=== PATIENT | female | born 1980 | race Caucasian/White ===

== ENCOUNTER → 2020-07-07 | Day surgery (SDC) | payer OTHER ==
--- NOTE | 2020-07-07 13:57 | MMO ---
FILMS COMPARED: The present examination has been compared to prior imaging studies performed at [facility] on 05/04/2020 and 06/28/2020. MAMMOGRAM FINDINGS: The breast is heterogeneously dense, which could obscure a lesion on mammography. Biopsy marker is seen posterior outer breast. IMPRESSION: FINDING IN THE RIGHT BREAST IS HIGHLY SUGGESTIVE OF MALIGNANCY. POST BIOPSY. PATHOLOGY PENDING. ACR BI-RADS Category 5 - Highly suggestive of malignancy - appropriate action should be taken Reported by: LONDON RUFFIN MD Electonically Signed: [id number]
--- NOTE | 2020-07-07 14:20 | ULT ---
PROCEDURE: 1. Ultrasound guided core biopsy mass left breast. 2. Ultrasound guided biopsy marker placement at biopsy site. 3. Post biopsy mammogram. INDICATIONS: Patient referred from her primary care doctor in [place], [place]. Outside images from [facility] on reviewed including mammogram and ultrasound exam. Mammograms showed suspicious microcalcifications in the upper outer right breast. Ultrasound demonstrate a hypoechoic mass which is labeled at 10 o'c lock on the outside study. FINDINGS: 1. Preoperative ultrasound of the right breast does demonstrate a hypoechoic spiculated mass at 9 to 10 o'clock. This corresponds to the mass seen on the outside ultrasound exam. This mass is biopsy using ultrasound guided core biopsy with a 14 gauge bard instrument. Five core sp ecimens were obtained through the mass. Prefire and post fire images with each specimen demonstrates biopsy through the mid portion of the mass. Specimens were placed in formalin. 2. Biopsy marker was placed at biopsy site with ultrasound guidance. 3. Postprocedure mammogram confirms biopsy marker in the posterior upper outer right breast correspon ding to the location of the ultrasound mass. Biopsy report will be relayed to patient. Patient will follow-up with her primary care doctor in [facility] and seek further treatment in [place] as warranted from the biopsy report. PROCEDURE NOTE: The right breast was prepped and draped in a sterile manner. Local anesthesia was administered in the outer right breast at site of selected puncture. Local anesthesia was administered under ultrasound guidance. There is a tiny skin luis made with scalpel. A 14 gauge Bard instrument with guide needle i n place was introduced under ultrasound guidance. The instrument was introduced from the inferior out er right breast approaching the 10 o'clock lesion. The biopsy needle was advanced to the leading edge of the mass. A prefire image was obtained. A post fire image confirmed biopsy to the mid portion of the mass. This was repeated x5 with five 14 gauge core specimens obtained and placed in formalin. Biopsy marker was then placed at biopsy site with ultrasound guidance. The patient tolerated the procedure well and was sent for postprocedure mammogram. Postprocedure mammogram confirmed biopsy marker in the posterior aspect of the upper outer right vic st. POS: OFF
== END ==
LOC: BICULT 12:50
PROVIDERS: ATTEND Obstetrics & Gynecology
PROC: 0H9U3ZX Drainage of Left Breast, Percutaneous Approach, Diagnostic (ICD-10-PCS; principal; 2020-07-07)
DX: C50.411 Malignant neoplasm of upper-outer quadrant of right female breast (principal); Z17.0 Estrogen receptor positive status [ER+]
CPT/HCPCS: 19083; 88305; 88341; 88342

== ENCOUNTER 2020-07-20 13:02 | Outpatient (CLI) | payer OTHER ==
--- NOTE | 2020-07-24 10:19 | MRI ---
MRI BREAST W W/O CONT BILAT History: Abnormal right breast mass and breast calcifications Comparison: Ultrasonographic right breast mass biopsy July 07, 2020. Mammogram right breast Octobe r 2019. Screening mammogram of both breasts April 2020. Findings: Multiplanar multisequence MRI of the breasts was performed prior to and after the intraveno us ministration of contrast. Exam was reviewed on an independent 3-D workstation. The breasts are heterogeneously dense. Mild background parenchymal enhancement. Corresponding to the ultrasonographic findings is a 1.4 cm mass upper outer quadrant right breast. Th is has type III kinetics. Adjacent to this are smaller masses; the first is medial to the primary mass approximately 7 mm measuring up to 6 mm in size. This also has type III kinetics. Anterior to th e primary mass, approximately 1.3 cm, is another 6 mm focus of abnormal hyperenhancement. This is all within the same segment of breast. Crossing the right upper outer and right lower outer quadrants is non-masslike enhancement. This abno rmal area of enhancement corresponds to abnormal calcifications seen on recent mammography. In the left breast, there is a small enhancing focus measuring 3 mm, 1.5 cm from the nipple, adjacent to a cyst. This cyst measures up to 1.4 cm in size. There is also lower outer and upper outer cysts of the left breast. Complex cyst upper outer left breast posterior depth does not have any significant internal enhanceme nt. Impression: BI-RADS Category 6: Known malignancy. This is the 1.3 cm mass posterior depth upper outer right breas t. High suspicion for multifocal disease with adjacent small satellite masses along with adjacent multicentric upper outer and lower outer quadrant non-masslike enhancement suggesting DCIS. 2. Small enhancing focus of the left breast measuring 3 mm 1.5 cm from the nipple is too small to reny racterize and not well seen on prior ultrasound or mammogram. Follow-up breast MRI in 6 months recommended. Transcribed Date/Time: 07/24/2020 11:55 AM
== END 2020-07-20 13:03 | disposition home or self-care (01) ==
LOC: BICMRI 13:02
PROVIDERS: ATTEND Specialist
DX: C50.911 Malignant neoplasm of unspecified site of right female breast (principal); N63.11 Unspecified lump in the right breast, upper outer quadrant
CPT/HCPCS: A9577; C8908

== ENCOUNTER → 2020-07-21 | Day surgery (SDC) | payer OTHER ==
--- NOTE | 2020-07-21 08:56 | MMO ---
Stereotactic guided biopsy right breast microcalcifications. Surgical specimen mammography right breast Right diagnostic mammogram post biopsy HISTORY: Breast cancer. Suspicious microcalcifications. Evaluate for DCIS. FINDINGS: After explaining the procedure and answering all questions, the large area of microcalcific ations deep within the lateral aspect of the right breast was visualized. Sterile technique, buffered local anesthesia, stereotactic guidance, and a lateral approach were used to carefully advance a 10-gauge vacuum-assisted needle into the microcalcification cluster. Position was confirmed with stereotactic imaging. A total of 12 10-gauge vacuum-assisted specimens were obtained without difficulty. Mammographic evaluation surgical specimen shows extensive microcalcifications throughout the tissue. Localization clip was placed in the biopsy bed under stereotactic control. Needle was removed and hem ostasis obtained using direct pressure. Patient tolerated the procedure well and was eventually dismissed in good condition. Postprocedure diagnostic mammogram images show removal of a portion of the microcalcification cluster deep within the lateral aspect of the right breast. Pocket of gas and localization clip are now evident at the biopsy bed. IMPRESSION : Technically successful stereotactic guided biopsy right breast microcalcifications. Pathology is pend ing.
== END ==
LOC: MAMMO 07:35
PROVIDERS: ATTEND Specialist
PROC: 0H9 Skin and Breast, Drainage (ICD-10-PCS; principal; 2020-07-21)
DX: C50.911 Malignant neoplasm of unspecified site of right female breast (principal)
CPT/HCPCS: 19081; 76098; 88305; 88341; 88342

== ENCOUNTER 2020-08-03 06:52 | Outpatient (CLI) | payer OTHER ==
[2020-08-03 14:44] LABS: BHCG - Serum Negative (NEGATIVE); Pregs Control Background? CLEAR/WHITE (CLR/WHITE); Pregs Control Bar Appear? YES (CONTROL BAR)
[2020-08-03 14:46] LABS: Anion Gap 11 mmol/L (10-20); BUN (Urea Nitrogen) 14 mg/dL (7.0-18.7); Calc. Creatinine Clearance 0 mL/min (70-130); Calcium 9.2 mg/dL (7.8-10.44); Carbon Dioxide 26 mmol/L (22-29); Chloride 105 mmol/L (98-107); Estimated GFR-MDRD 60; Glucose 85 mg/dL (70-105); Potassium 4.3 mmol/L (3.5-5.1); Sodium 138 mmol/L (136-145)
[2020-08-03 14:47] LABS: #Eosinphils 0.1 10x3/uL (0.0-0.5); #Monocytes 0.8 10x3/uL (0.0-1.1); #Neutrophils 4.5 10x3/uL (1.5-8.4); %Basophils 0.4 % (0.0-2.0); %Eosinophils 0.9 % (0.0-6.0); %Lymphocytes 33.5 % (18.0-47.0); %Monocytes 9.5 % (0.0-10.0); %Neutrophils 55.5 % (40.0-75.0); Hemoglobin 13.4 g/dL (12.0-16.0); Mean Corpuscular HGB CONC 33.1 G/DL (32.0-36.0); Mean Corpuscular Hemoglobin 30.5 PG (27.0-33.0); Mean Corpuscular Volume 92.3 fl (80.0-100.0); Mean Platelet Volume 10.6 fl (7.4-10.4); Platelet Count 280 10x3/uL (130-400); RBC Distribution Width 11.7 % (11.5-14.5); Red Blood Cell (RBC) Count 4.39 10x6/uL (3.90-5.20)
[2020-08-04 04:01] LABS: SARS-CoV-2 MS2 Positive; SARS-CoV-2 N Gene Negative; SARS-CoV-2 S Gene Negative; SARS-CoV-2 by NAA Not Detected (NotDetected); SARS-CoV-2 orf1ab Negative
== END 2020-08-03 06:53 | disposition home or self-care (01) ==
LOC: LABBT 06:52
PROVIDERS: ATTEND Specialist
DX: Z01.812 Encounter for preprocedural laboratory examination (principal); C50.911 Malignant neoplasm of unspecified site of right female breast; Z20.828 Contact with and (suspected) exposure to other viral communicable diseases
CPT/HCPCS: 80048; 84703; 85025; 87635; U0003

== ENCOUNTER 2020-08-08 07:32 | Day surgery (SDC) | payer OTHER ==
[2020-08-07 11:50] VITALS: BMI 23.3
--- NOTE | 2020-08-08 08:44 | NM ---
PROCEDURE: Lymphoscintigraphy of the right breast HISTORY: Upper outer right breast cancer PRIZE JACKER: Crystal AGENT: 399 uCi of technetium 99 M filtered sulfur colloid TECHNIQUE: The breast was prepped with alcohol in the periareolar region. The radiopharmaceutical was injected into 4 spots surrounding the nipple at the 12:00, 3:00, 6:00, and 9:00 positions. Massage was performed of the breast helping the radiopharmaceutical enter the lymphatics. Images obta ined showed uptake of the radiopharmaceutical within an axillary lymph node. IMPRESSION: Right axillary sentinel lymph node
[2020-08-08] MEDS ORDERED: PROPOFOL 200 MG/20 ML VIAL ONE (09:27)
[2020-08-08] MEDS ORDERED: Ondansetron PF 4 MG/2 ML Vial ONE (09:27)
[2020-08-08] MEDS ORDERED: PHENYLEPHRINE-NS 100 MCG/ML 10 ML SYRINGE ONE (09:27)
[2020-08-08] MEDS ORDERED: Dexamethasone 20 MG/5 ML VIAL ONE (09:27)
[2020-08-08] MEDS ORDERED: Midazolam HCl 2 mg/2 ml Vial ONE ×2 (10:46→12:31)
[2020-08-08] MEDS ORDERED: Ketorolac Tromethamine 30 MG/ML VIAL ONE (10:46)
[2020-08-08] MEDS ORDERED: Acetaminophen 500 MG TAB ONE (10:46)
[2020-08-08] MEDS ORDERED: Bupivacaine 0.25% HCL 30 ML VIAL ONE ×2 (12:15→14:03)
[2020-08-08] MEDS ORDERED: Lidocaine 1% w/Epinephrine 1:100K 20 ML VIAL ONE ×2 (12:15→14:03)
[2020-08-08] MEDS ORDERED: Lidocaine 1% (PF) 30 ML VIAL ONE (12:15)
[2020-08-08] MEDS ORDERED: Isosulfan Blue 50 MG/5 ML VIAL ONE (12:15)
[2020-08-08] MEDS ORDERED: Fentanyl 100 MCG/2 ML VIAL ONE ×2 (12:31→13:46)
[2020-08-08] MEDS ORDERED: HYDROmorphone 2 MG/ML VIAL SLOW IVP PRN (16:48)
[2020-08-08] MEDS ORDERED: Meperidine HCl/PF 25 MG/ML VIAL SLOW IVP PRN (16:48)
[2020-08-08] MEDS ORDERED: Ondansetron HCl/PF 4 MG/2 ML Vial IVP PRN (16:48)
[2020-08-08] MEDS ORDERED: Promethazine HCl 25 MG/ML VIAL SLOW IVP PRN (16:48)
--- NOTE | 2020-08-08 17:14 | RAD ---
RADIOGRAPH CHEST 1 VIEW: DATE: 08/08/2020 HISTORY: 40-year-old female status post MediPort placement COMPARISON: None FINDINGS: There are no airspace densities, pulmonary edema, pneumothorax, or cardiomegaly. The lateral costophr enic angles are excluded from the [id number]. There is a left subclavian MediPort with distal tip overlying SVC. IMPRESSION: 1) Left-sided implantable vascular access port. No pneumothorax. 2) No acute cardiopulmonary findings.
--- NOTE | 2020-08-09 13:55 | OP ---
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 OPERATION PERFORMED: Bilateral nipple-sparing mastectomy with right axillary sentinel lymph node biopsy and left subclavian low-profile power compatible MediPort placement. ANESTHESIA: General endotracheal. INDICATIONS: The patient is a 40-year-old white female. She was recently diagnosed with invasive ductal carcinoma of the upper right breast. She has further areas of ductal carcinoma in situ, remote from the malignancy that makes any operation other than a mastectomy unfeasible. In light of this, she has elected to proceed with a bilateral mastectomy. This will be performed in nipple sparing fashion to allow for later reconstruction. Her cancer is HER-2/bertha positive, and her oncologist has requested MediPort placement for chemotherapy administration. DESCRIPTION OF OPERATION: Informed consent was obtained. Lymphoscintigraphy was performed of the right breast revealing axillary lymph nodes. She was taken to the operating room, where general endotracheal anesthesia was obtained with patient in supine position. 3 mL of Lymphazurin was infiltrated in the periareolar subdermal tissue and massaged for 5 minutes. Bilateral breasts and axillae were prepped with ChloraPrep and draped in sterile fashion. Attention was turned first to the MediPort placement. A low-profile power compatible port was placed in the standard fashion, accessing the left subclavian vein uneventfully and utilizing fluoroscopy. The port was secured to the pectoral fascia with 2 interrupted sutures of 3-0 Prolene. The port aspirated blood freely. It was flushed with heparinized saline and the wound was closed in layers with 3-0 and 4-0 Monocryl. Attention was then turned to the right axilla. A transverse axillary incision was created after local anesthetic was infiltrated. Dissection was carried through skin and subcutaneous tissue. Neoprobe was utilized to identify areas of maximum radio intensity. I was able to identify 3 separate sentinel lymph nodes utilizing both the blue dye and the radioactive tracer. Each of these three lymph nodes was dissected circumferentially and all investing lymphatics were divided between clamps and 3-0 silk ties. Intraoperative assessment showed that all three of these were negative. The wound was closed in layers with 3-0 and 4-0 Monocryl. Attention was then turned to the left breast. An incision was created in the left inframammary crease. Dissection was carried down to the chest wall and the breast was elevated off the underlying muscular fascia using careful dissection utilizing the PlasmaBlade. An adipose dermal flap was then elevated off the underlying breast tissue, taking care to maintain appropriate cutaneous viability while removing all of the breast tissue. The dissection was carried up to the extent of the breast superiorly and laterally. The specimen was removed intact and oriented with suture and submitted to Pathology. The wound was irrigated. Meticulous hemostasis was obtained with electrocautery. A #19 round fluted drain was placed within the wound and brought out laterally and inferiorly and secured with 3-0 nylon suture. The incision was then closed in layers with a 3-0 and 4-0 Monocryl suture. Attention was finally turned to the right breast. A mirror-image operation was performed on the right breast as had been performed on the left. At no point was I able to feel or see the malignancy within the breast. There was an area of indurated tissue from her recent biopsy in the upper outer right breast and a thinner skin flap was elevated in that particular area in case there was some remnant of malignancy or DCIS at that location. Otherwise, the operation was identical to that on the left. The wound was again irrigated, drain was placed, and the wound was closed in a similar fashion. Dermabond was placed over each of the four incisions. A fluffed gauze dressing was placed across the chest wall and secured in place with a SilversteinWrap. There were no complications. Blood loss was minimal. The patient tolerated the procedure well and was taken to recovery room in stable condition. Job ID: [id number]
== END 2020-08-08 19:30 | disposition home or self-care (01) ==
LOC: SDC 07:32
PROVIDERS: ATTEND Specialist
PROC: 07B50ZX Excision of Right Axillary Lymphatic, Open Approach, Diagnostic (ICD-10-PCS; principal; 2020-08-08)
PROC: 0HTV0ZZ Resection of Bilateral Breast, Open Approach (ICD-10-PCS; principal; 2020-08-08)
PROC: 02HV33Z Insertion of Infusion Device into Superior Vena Cava, Percutaneous Approach (ICD-10-PCS; principal; 2020-08-08)
DX: C50.411 Malignant neoplasm of upper-outer quadrant of right female breast (principal); N60.22 Fibroadenosis of left breast; N60.82 Other benign mammary dysplasias of left breast; D64.9 Anemia, unspecified; F41.9 Anxiety disorder, unspecified; Z17.1 Estrogen receptor negative status [ER-]; Z87.891 Personal history of nicotine dependence; Z91.048 Other nonmedicinal substance allergy status
CPT/HCPCS: 71045; 78195; 88305; 88307; 88331; 88333; 88334; 88342; A9541; C1788; J0690; J1100; J1642; J1885; J2001; J2250; J2405; J2704; J3010; Q9968; S0020

== ENCOUNTER 2020-09-13 12:39 | Outpatient (CLI) | payer OTHER | END 2020-09-13 12:40 | disposition home or self-care (01) | LOC: ULT 12:39 | PROVIDERS: ATTEND Internal Medicine Hematology & Oncology | DX: Z51.11 Encounter for antineoplastic chemotherapy (principal); C50.811 Malignant neoplasm of overlapping sites of right female breast; I07.1 Rheumatic tricuspid insufficiency; Z79.899 Other long term (current) drug therapy | CPT/HCPCS: 93306 ==

== ENCOUNTER 2020-11-09 12:35 | Outpatient (CLI) | payer OTHER | END 2020-11-09 12:36 | disposition home or self-care (01) | LOC: ULT 12:35 | PROVIDERS: ATTEND Internal Medicine Hematology & Oncology | DX: Z51.11 Encounter for antineoplastic chemotherapy (principal); C50.811 Malignant neoplasm of overlapping sites of right female breast; Z79.899 Other long term (current) drug therapy | CPT/HCPCS: 93306 ==

== ENCOUNTER 2021-02-27 12:36 | Outpatient (CLI) | payer OTHER | END 2021-02-27 12:37 | disposition home or self-care (01) | LOC: ULT 12:36 | PROVIDERS: ATTEND Internal Medicine Hematology & Oncology | DX: Z51.11 Encounter for antineoplastic chemotherapy (principal); C50.811 Malignant neoplasm of overlapping sites of right female breast; I07.1 Rheumatic tricuspid insufficiency; Z79.899 Other long term (current) drug therapy | CPT/HCPCS: 93306 ==

== ENCOUNTER 2021-07-03 12:40 | Outpatient (CLI) | payer OTHER | END 2021-07-03 12:41 | disposition home or self-care (01) | LOC: ULT 12:40 | PROVIDERS: ATTEND Internal Medicine Hematology & Oncology | DX: Z51.11 Encounter for antineoplastic chemotherapy (principal); C50.811 Malignant neoplasm of overlapping sites of right female breast; I08.1 Rheumatic disorders of both mitral and tricuspid valves | CPT/HCPCS: 93306 ==